=== PATIENT | female | born 1955 | race Caucasian/White ===

== ENCOUNTER 2023-01-26 13:29 | Emergency (ER) | payer MEDICARE, OTHER ==
[~2023-01-26] VITALS: Ht 147.3 cm; Wt 59.0 kg
[2023-01-26] MEDS ORDERED: METO25TA20 PO (14:13)
[2023-01-26] MEDS ORDERED: ACET-2605 PO (14:13)
[2023-01-26] MEDS ORDERED: CALC500T52 PO (14:13)
[2023-01-26] MEDS ORDERED: METF-440 PO (14:13)
[2023-01-26] MEDS ORDERED: OMEP20CA15 PO (14:13)
[2023-01-26] MEDS ORDERED: FERR324T4 PO (14:13)
[2023-01-26] MEDS ORDERED: ICOS1CAP PO (14:13)
[2023-01-26] MEDS ORDERED: CHOL100043 PO (14:13)
[2023-01-26] MEDS ORDERED: BENA40TA8 PO (14:13)
[2023-01-26] MEDS ORDERED: CLON0.1T PO (14:13)
[2023-01-26] MEDS ORDERED: VALS1TAB7 PO (14:13)
[2023-01-26] MEDS ORDERED: MAGN400T26 PO (14:13)
[2023-01-26] MEDS ORDERED: ASPI-1169 PO (14:13)
[2023-01-26] MEDS ORDERED: AMLO-212 PO (14:13)
[2023-01-26] MEDS ORDERED: CLONIDINE HCL 0.1 MG TABLET ONE (14:29)
[2023-01-26] MEDS ORDERED: CLONIDINE HCL 0.1 MG TABLET PO ONE (14:30)
[2023-01-26 14:34] LABS: BASOPHILS # (AUTO) 0.3 K/uL (0.0-0.2); BASOPHILS % (AUTO) 2.2 % (0.0-2.0); EOSINOPHILS # (AUTO) 0.1 K/uL (0.0-0.7); EOSINOPHILS % (AUTO) 1.1 % (0.0-6.0); HEMATOCRIT 34 % (33-45); HEMOGLOBIN 11.5 g/dL (11.5-14.8); LYMPHOCYTES # (AUTO) 2.2 K/uL (0.8-4.8); LYMPHOCYTES % (AUTO) 18.5 % (20.0-44.0); MEAN CORPUSCULAR HEMOGLOBIN 29 PG (26.0-33.0); MEAN CORPUSCULAR HGB CONC 34 g/dl (31.0-36.0); MEAN CORPUSCULAR VOLUME 87 fL (82-100); MONOCYTES # (AUTO) 0.5 K/uL (0.1-1.30); MONOCYTES % (AUTO) 4.4 % (2.0-12.0); NEUTROPHILS # (AUTO) 8.8 K/uL (1.8-8.9); NEUTROPHILS % (AUTO) 73.8 % (43.0-81.0); PLATELET COUNT (AUTO) 240 K/uL (150-450); RED CELL DISTRIBUTION WIDTH 13.2 % (11.5-15.0)
[2023-01-26 15:12] LABS: CALCIUM, SERUM 9.2 mg/dL (8.5-10.1); CARBON DIOXIDE 21 mmol/L (21-32); CHLORIDE 100 mmol/L (98-107); CREATININE 1.1 mg/dL (0.6-1.3); GLUCOSE 232 mg/dL (74-106); POTASSIUM 4.4 mmol/L (3.5-5.1); SODIUM SERUM 134 mmol/L (136-145); UREA NITROGEN, BLOOD 30 mg/dL (7-18)
[2023-01-26 15:25] LABS: NT-PRO BNP 288 pg/mL (0-125)
[2023-01-26 16:24] VITALS: BP 119/66; TEMP 98.2; O2SAT 98
== END 2023-01-26 16:24 | disposition home or self-care (01) ==
LOC: ER 13:34
DX: I10 Essential (primary) hypertension (principal); H93.19 Tinnitus, unspecified ear; E11.9 Type 2 diabetes mellitus without complications; R51.9 Headache, unspecified; D64.9 Anemia, unspecified; Z79.4 Long term (current) use of insulin; Z79.899 Other long term (current) drug therapy
CPT/HCPCS: 99285; 70450; 71045; 93005 ×2; 85025; 80048; 36415; 84484; 83880; A4223